=== PATIENT | female | born 1935 | race Caucasian/White ===

== ENCOUNTER 2018-04-08 09:06 | Inpatient (IN) | payer BC, OTHER ==
[2018-03-04 16:37] VITALS: BMI 36.0
--- NOTE | 2018-03-11 11:10 | HP ---
DATE OF ADMISSION: 03/17/2018 DATE OF SURGERY: 03/17/2018 BRIEF HISTORY: This is an 82-year-old female who was in her usual state of health up until a week or so ago when she developed sharp pain in the upper abdomen. She presented to her local hospital at that time and had complaints of sharp, upper abdominal pain with a large mass. The skin superficial to the mass was red, and the mass was extremely tender. She had nausea at that time associated with some mild vomiting. A CAT scan of the abdomen and pelvis was performed after the mass was pushed back in. The CT demonstrated a large, chronically incarcerated ventral hernia as well as a smaller umbilical hernia (more of an incidental finding). The patient has been fine since that hernia was reduced and now wishes to undergo definitive surgical management. The patient has had normal bowel movements. She has been watching her diet. She has had no fever, chills, or sweats. She has had no further bouts of abdominal pain. PAST MEDICAL HISTORY: She denies coronary disease, hypertension, or diabetes. PAST SURGICAL HISTORY: The patient has had cataracts and meniscus surgery. ALLERGIES: None. MEDICATIONS: Vitamins and a baby aspirin. SOCIAL HISTORY: The patient does not smoke. She drinks socially. PHYSICAL EXAMINATION: HEENT: Unremarkable. Abdomen: Obese, soft, nontender, nondistended. [place] between the xiphoid and umbilicus there is a large mass noted in the abdomen. The mass is approximately the size of a softball. There are no obvious defects appreciated due to its chronically incarcerated nature. The mass is mildly tender to deep palpation. She also has an umbilical hernia identified. The skin overlying the hernia is thin. IMPRESSION AND PLAN: Complex/chronically incarcerated ventral hernia. This is an 82-year-old female with 2 discrete hernias, one very large in the upper abdomen (epigastrium) and one at the level of the umbilicus. Due to the proximity of these two and the amount of free tissue between these two, I suspect she will have to have both repaired and addressed at the same time. The symptomatic hernia cannot be repaired well without addressing the other smaller hernia. Due to the fact that the epigastric hernia is large and that the other one heartbeat encompassed in the repair as well, she may require component separation for a nice tension-free rectorectus repair. This can only be determined at the time of surgery. I have discussed the various approaches with this patient such as laparoscopic, robotic, and open and various placements of the mesh and different meshes that we would potentially use at the time of surgery. The patient will be scheduled for an open complex ventral hernia repair with mesh most likely bilateral component separation as well. The indications, alternatives, and complications of the procedure discussed and questions answered. We will plan to obtain written consent the day of surgery. Ruby RAMIREZ [id number] cc: Sheyla Hsu [address] [place] [address]
[~2018-04-08 09:06] MED LIST: BUPIVACAINE HCL/PF (5 MG/ML) 30 ML VIAL IJ ONE; DEXAMETHASONE SOD PHOSPHATE 4 MG/1 ML VIAL IM ONE
[2018-04-08] MEDS ORDERED: DEXAMETHASONE SOD PHOSPHATE/PF 10 MG/ML SDV ONE (09:33)
[2018-04-08] MEDS ORDERED: ROPIVACAINE HCL 0.5% 30ML VIAL ONE (09:33)
[2018-04-08] MEDS ORDERED: MIDAZOLAM HCL 2 MG/2 ML SINGLE DOSE VIAL ONE ×2 (09:35)
[2018-04-08] MEDS ORDERED: ceFAZolin SODIUM 1 GM VIAL ONE (09:38)
[2018-04-08] MEDS ORDERED: oxyCODONE HCL 5 MG TABLET PO PRN (10:29)
[2018-04-08] MEDS ORDERED: D5-1/2NS+20 MEQ KCL - 20 MEQ/1,000 ML INFUS.BAG IV SCH (10:30)
--- NOTE | 2018-04-08 10:49 | HP ---
DATE OF ADMISSION: 04/08/2018 PREOPERATIVE DIAGNOSIS: Chronically incarcerated complex ventral hernia x2. BRIEF HISTORY: This is an 82-year-old female who I initiated evaluated in February 2018. Due to [facility] Guidelines, she is outside 30 days; therefore, the history and physical is redictated. Please refer to my initial history and physical for complete details. The patient has a complex ventral hernia and now is here for operative repair. PAST MEDICAL HISTORY: No coronary disease, hypertension, or diabetes. PAST SURGICAL HISTORY: Cataract and meniscus surgery. ALLERGIES: None. MEDICATIONS: Vitamins. SOCIAL HISTORY: The patient does not smoke. She drinks socially. PHYSICAL EXAMINATION: The abdomen is obese, soft, nontender, nondistended. In the epigastrium, the patient has a large, chronically incarcerated mass. The patient also has a mass at the level of the umbilicus. The superior mass is approximately the size of a softball. The inferior mass is approximately the size of a golf ball. IMPRESSION AND PLAN: Complex, chronically incarcerated ventral hernia x2. The patient will undergo repair. Due to the generosity and distance between the 2 findings, the patient will most likely require component separation as well. The indications, alternatives, and complications were discussed and questions answered. We will plan to obtain written consent the day of surgery as well. Ruby RAMIREZ [id number] cc: Dr. Sheyla Hsu
[2018-04-08] MEDS ORDERED: ceFAZolin SODIUM 1 GM VIAL IVPB ONE (11:05)
[2018-04-08] MEDS ORDERED: BUPIVACAINE HCL/PF (5 MG/ML) 30 ML VIAL IJ ONE (12:00)
[2018-04-08] MEDS ORDERED: DEXAMETHASONE SOD PHOSPHATE 4 MG/1 ML VIAL IM ONE (12:00)
[2018-04-08] MEDS ORDERED: PROMETHAZINE HCL 25 MG/1 ML VIAL IVPUSH PRN (13:03)
[2018-04-08] MEDS ORDERED: ONDANSETRON 4 MG/2 ML VIAL IVPUSH PRN (13:03)
[2018-04-08] MEDS ORDERED: LACTATED RINGERS SOLUTION 1,000 ML IV SCH (13:15)
--- NOTE | 2018-04-08 14:04 | OP ---
DATE OF OPERATION: 04/08/2018 PREOPERATIVE DIAGNOSIS: Complex, chronically incarcerated ventral hernia x2. POSTOPERATIVE DIAGNOSIS: Complex, chronically incarcerated ventral hernia x2. PROCEDURES: Open bilateral component separation, repair of complex incarcerated ventral hernia with mesh x2, partial omentectomy. SURGEON: Davis Monet MD CLAM GROWER: Cisco Hinton DO ANESTHESIA: Robert Cotto MD (general). ESTIMATED BLOOD LOSS: Minimal. SPECIMEN: Portion of omentum. INDICATION FOR PROCEDURE: This is an 82-year-old female with a large, chronically incarcerated ventral hernia. She also has a smaller one in the midline. The larger one is incarcerated with colon and she has had bouts of sharp pain associated with acute incarceration of her colon. Therefore, she wished to have this repaired now. DESCRIPTION OF PROCEDURE: Patient identified and appropriately positioned on the operating room table. After placement of general anesthesia, the abdomen prepped and draped in the usual sterile fashion with ChloraPrep. A midline incision was made, deepened through subcutaneous tissue. The two hernias identified in the subcutaneous tissue and divided from the subcutaneous tissue down to the level of the fascia. The larger superior hernia sac was incised and contained a portion of omentum that was making up part of the posterior wall of the sac as well as a portion of colon was stuck in the hernia itself. The sac and a portion of the omentum were sharply excised and handed off as specimen as hernia sac with partial omentectomy. The smaller defect inferiorly was also circumscribed and the distance between the two was approximately three fingerbreadths, but fairly close, and therefore the bridge between the two hernias was sharply divided, and in doing so, the abdomen was completely entered. The posterior rectus sheath on the patient' s right side was scored and the posterior rectus space subsequently developed bluntly out to the perforating vessels. At this point, the transversus was sharply divided from the obliques and rectus junction, and a myofascial separation ensured, the transversus to allow this muscle to be brought medially. This myofascial separation continued for approximately 5 inches above and below the actual defect. Superiorly, the separation was taken through the obliques to allow placement of the mesh on the anterior costal margin rib cage. Once this myofascial separation was completed on the right, a similar approach was used on the left. On the left side, the posterior rectus sheath was opened and out bluntly, and again the transversus fascia was sharply divided from the oblique junction as well as the rectus junction. This was taken 5 to 6 inches above and below the actual defect and superiorly was taken through the obliques to allow placement of the mesh on the anterior rib cage. At this point, the abdomen was irrigated, the irrigant retrieved, and the operative field was hemostatic. The transversus layer was then reapproximated with a running 2-0 V-Loc suture. A large, 30 x 30 piece of Versatex mesh and a 20 x 20 piece of AMY Bio was used for the operative repair. The AMY was a core. The two pieces of mesh were sewn together with interrupted 3-0 Vicryl suture. The mesh was placed in such a fashion behind the rectus muscle so that the AMY was touching the transversus and the Versatex was touching the posterior wall of the rectus. The mesh was then anchored with interrupted AbsorbaTack sutures. The mesh irrigated. The operative field noted to be hemostatic. Midline closed with a running PDS suture. The midline fascia was " ." It was frayed and retracted out laterally and therefore a primary repair of this layer would most likely recur. The subcutaneous space was irrigated. A 10-flat, LUISA placed, brought out through a separate stab incision in the right lower abdomen. The LUISA sewn with 2-0 silk. The skin closed with suze followed by Dermabond. At the conclusion of this case, sponge counts were correct. ATTESTATION: Brief operative note handwritten on the preprinted form. [facility] queried, prior to giving narcotics. It will be done electronically. Ruby RAMIREZ [id number] cc: Dr. Shadi LIU
[2018-04-08] MEDS ORDERED: morphine SULFATE 4 MG/ML VIAL IVPB PRN (15:33)
[2018-04-08] MEDS: ACETAMINOPHEN 325 MG TABLET (FP) PO PRN ×2 (16:31→22:58)
[2018-04-09] MEDS: ACETAMINOPHEN 325 MG TABLET (FP) PO PRN ×4 (06:00→21:08)
[2018-04-09] MEDS ORDERED: PANTOPRAZOLE SODIUM 40 MG VIAL IVPUSH SCH (10:00)
[2018-04-09] MEDS: ENOXAPARIN NA (PORCINE) 40 MG/0.4 ML DISP.SYRIN SQ SCH (10:08)
[2018-04-09] MEDS: ASPIRIN 81 MG CHEWABLE TABLETS PO SCH (10:08)
--- NOTE | 2018-04-09 13:28 | PATH ---
Surgical Pathology Report Patient Name: LAVERN VENTURA [facility]. Rec. #: [id number] /Age/Gender: 1935 (Age: 82) / F Account: [id number] Location: [facility] MED/SURG Taken: 04/08/2018 Received: 04/08/2018 Reported: 04/09/2018 Physicians: Davis Monet Specimen(s) Received A: HERNIA SAC B: PORTION OF OMENTUM Clinical History Incarcerated complex ventral hernia x2 Final Diagnosis A. HERNIA SAC, EXCISION: FIBROADIPOSE TISSUE WITH FAT NECROSIS, CONSISTENT WITH HERNIA SAC. B. PORTION OF OMENTUM: MATURE ADIPOSE TISSUE, CONSISTENT WITH OMENTUM. Electronically Signed Khari Negro M.D. Gross Description A. Received in formalin labeled "hernia sac," is an 8.0 x 6.5 x 2.7 cm aggregate of multiple perez-red portions of fibromembranous tissue with attached fat, consistent with a hernia sac. Sectioning reveals focally hemorrhagic fat and fat necrosis. Statement Clerks Supervisor sections are submitted in 2 cassettes. B. Received in formalin labeled "portion of omentum," is a 4.7 x 4.5 x 1.9 cm. portion of yellow, lobulated adipose tissue with attached perez-pink fibromembranous tissue. Statement Clerks Supervisor sections are submitted in one cassette. saudi/04/08/2018
[2018-04-09] MEDS ORDERED: oxyCODONE HCL 5 MG TABLET PO PRN (16:31)
--- NOTE | 2018-04-09 16:36 | PN ---
Progress Note (short form) - Note Progress Note: surgery pt seen and examined. feels well. tolerating liquids. ambulating. voiding. had drainage around rama afebrile abd- soft, incision clean, rama serous (stitch placed to tighten hole) Plan- Pod#1- stop ivf. pt wishes to stay to monitor drainage around rama. stitch placed to secure. cont liquids. cont protonix/lovenox prophylaxis. likely d/c tomorrow with drain
[2018-04-10 01:37] VITALS: PULSE 73
[2018-04-10] MEDS: ACETAMINOPHEN 325 MG TABLET (FP) PO PRN ×2 (07:23→11:37)
[2018-04-10 09:50] VITALS: BP 151/72; TEMP 98.4
[2018-04-10] MEDS ORDERED: PANTOPRAZOLE 40 MG TABLET (FP) PO SCH (10:00)
[2018-04-10] MEDS: ASPIRIN 81 MG CHEWABLE TABLETS PO SCH (10:13)
[2018-04-10] MEDS: ENOXAPARIN NA (PORCINE) 40 MG/0.4 ML DISP.SYRIN SQ SCH (10:13)
--- NOTE | 2018-04-10 11:13 | DS ---
DATE OF ADMISSION: 04/08/2018 DATE OF DISCHARGE: 04/10/2018 ADMITTING DIAGNOSIS: Complex ventral hernia. DISCHARGE DIAGNOSIS: Complex ventral hernia. BRIEF HISTORY: This is an 82-year-old female who presented to [facility] for surgical management of a complex ventral hernia. She had this done on April 08. Please reference Dr. Davis Monet's operative note for further details. She did well postoperatively. She is being discharged home today April 10. She is tolerating diet. She is ambulating and she is voiding. She will go home with a Isacc-Duval drain, which she will record the amount and empty daily. She will follow with Dr. Monet this coming week to be evaluated for drain removal. She has a new prescription for Percocet, which she will take as needed for pain. She is okay to walk, okay to climb stairs. She will not lift anything more than 20 pounds. She will resume her usual home medications. At the time of her discharge, she is ambulating, voiding, with pain easily controlled with oral medications. DO NANCY LUJAN/[id number]
== END 2018-04-10 13:48 | disposition home or self-care (01) | DRG 355 ==
LOC: JASUSAT 09:06 → JSAMEDAYSX 10:29 → J8W 15:20
PROVIDERS: ADMIT Obstetrics & Gynecology; ATTEND Surgery
PROC: 0DBU0ZZ Excision of Omentum, Open Approach (ICD-10-PCS; 2018-04-08)
PROC: 0WUF0JZ Supplement Abdominal Wall with Synthetic Substitute, Open Approach (ICD-10-PCS; principal; 2018-04-08 10:30)
DX: K43.6 Other and unspecified ventral hernia with obstruction, without gangrene (principal)
CPT/HCPCS: 88302-TC; 88305-TC; 94760

== ENCOUNTER 2020-06-07 04:10 | Inpatient (IN) | payer BC, OTHER ==
--- NOTE | 2020-06-07 05:14 | PDOC ---
History of Present Illness - General Chief Complaint: Pain, Acute Stated Complaint: ABDOMINAL / BACK PAIN Time Seen by Provider: 06/07/20 04:12 - History of Present Illness Initial Comments: 06/07/20 05:06 84 F with hx of hernia surgery presented to the ED with 1 day of left sided flank pain, and LLQ pain. Her pain started out yesterday around 3 am. Started out from the left plank side, sharp in nature, colicky, 5/10 in nature, then proceed to LLQ., took 1 aspirin, didn't help. She has no hx of kidney stones, no HTN, DM, hx of vascular disease. Her pain, associated with Nausea, no vomitting, no dizziness. Last week, she had UTI symptoms ( dysruria, incraese frequency); however, they went away quickly. She thinks this is more intestine pain, than kidney pain. PMH: none PSH: hernia repair 2x Allergy: none Med: none SS: alcohol occasionally. ROS GENERAL/CONSTITUTIONAL: No fever or chills. No weakness. HEAD, EYES, EARS, NOSE AND THROAT: No change in vision. No ear pain or discharge. No sore throat. CARDIOVASCULAR: No chest pain or shortness of breath RESPIRATORY: No cough, wheezing, or hemoptysis. GASTROINTESTINAL: + nausea, no vomiting, diarrhea or constipation. +abdomen pain. GENITOURINARY: No dysuria, frequency, or change in urination. MUSCULOSKELETAL: No joint or muscle swelling or pain. No neck. +left planked back pain. SKIN: No rash NEUROLOGIC: No headache, vertigo, loss of consciousness, or change in strength/sensation. ENDOCRINE: No increased thirst. No abnormal weight change HEMATOLOGIC/LYMPHATIC: No anemia, easy bleeding, or history of blood clots. ALLERGIC/IMMUNOLOGIC: No hives or skin allergy. PE GENERAL: Awake, alert, and fully oriented, in no acute distress; however, look uncomfortable. HEAD: No signs of trauma, normocephalic, atraumatic EYES: PERRLA, EOMI, sclera anicteric, conjunctiva clear ENT: Auricles normal inspection, hearing grossly normal, nares patent, oropharynx clear without exudates. Moist mucosa NECK: Normal ROM, supple, no lymphadenopathy, JVD, or masses LUNGS: No distress, speaks full sentences, clear to auscultation bilaterally HEART: Regular rate and rhythm, normal S1 and S2, no murmurs, rubs or gallops, peripheral pulses normal and equal bilaterally. ABDOMEN: Soft, normoactive bowel sounds. No guarding, no rebound. No masses. No pulsatile mass,+vertical hernia scar. +LLQ tenderness, no CVA tenderness bilat EXTREMITIES : Normal inspection, Normal range of motion, no edema. No clubbing or cyanosis. NEUROLOGICAL: Cranial nerves II through XII grossly intact. Normal speech, normal gait, no focal sensorimotor deficits SKIN: Warm, Dry, normal turgor, no rashes or lesions noted 06/07/20 05:18 06/07/20 05:44 Past History - Medical History Allergies/Adverse Reactions: Allergies Allergy/AdvReac Type Severity Reaction Status Date / Time No Known Allergies Allergy Verified 06/07/20 04:23 Home Medications: Ambulatory Orders Aspirin 81 mg PO DAILY 03/04/18 Cholecalciferol (Vitamin D3) [Vitamin D3] 1,000 unit PO DAILY 03/04/18 Cyanocobalamin (Vitamin B-12) [Vitamin B-12] 1,000 mcg PO DAILY 03/04/18 Oxycodone HCl/Acetaminophen [Percocet 5-325 mg Tablet] 1 tab PO Q4H PRN #15 tablet MDD 6 04/08/18 Anemia: No Asthma: No Cancer: No Cardiac Disorders: No CVA: No COPD: No CHF: No Dementia: No Diabetes: No GI Disorders: No Disorders: No HTN: No Hypercholesterolemia: No Liver Disease: No Seizures: No Thyroid Disease: No - Surgical History Abdominal Surgery: No Appendectomy: No Cardiac Surgery: No Cholecystectomy: No Lung Surgery: No Neurologic Surgery: No Orthopedic Surgery: Yes (torn meniscus right knee) - Immunization History Td Vaccination: Yes Immunization Up to Date: Yes - Psycho-Social/Smoking History Smoking Status: Yes (STOPPED > 30 YRS AGO) Smoking History: Never smoked Have you smoked in the past 12 months: No Number of Cigarettes Smoked Daily: 0 Information on smoking cessation initiated: No - Substance Abuse Hx (Audit-C & DAST Scrn) How often the patient has a drink containing alcohol: Never Score: In Men: 4 or > Positive; In Women: 3 or > Positive: 0 Screen Result (Pos requires Nsg. Audit-10AR): Negative In the last yr the pt used illegal drug/Rx for NonMed reason: No Score: Yes response is considered Positive: 0 Screen Result (Positive result requires Nsg. DAST-10): Negative *Physical Exam - Vital Signs Last Vital Signs Temp Pulse Resp BP Pulse Ox 98.3 F 89 20 192/90 H 97 06/07/20 04:23 06/07/20 04:23 06/07/20 04:23 06/07/20 04:23 06/07/20 04:23 ED Treatment Course - LABORATORY CBC & Chemistry Diagram: 06/07/20 05:12 06/07/20 05:12 Medical Decision Making - Medical Decision Making 06/07/20 05:16 84 F with hx of hernia surgery presented to the ED with 1 day of left sided flank pain, and LLQ pain. ddx: kidney stones, pyelo, diverticulitist, ACS, AAA Plan: EKG, CBC, CMP, lipase, trop, UA/UC. Med: pain control. Imaging: CT scan noncontrast 06/07/20 06:36 EKG show vent rate 77, reg rate, rhthym, normal sinus. Tall T waves, No ST changes suggesting Ischemic. Patient was asked to have option for pain medication. Patient refused. 06/07/20 06:40 06/07/20 06:46 Pain was reassessed. Patient now wants pain med. Will give tylenol. and regland for nausea. 06/07/20 06:51 Sign out is given to day team. Discharge - Discharge Information Problems reviewed: Yes Clinical Impression/Diagnosis: Flank pain Condition: Stable - Follow up/Referral - Patient Discharge Instructions - Post Discharge Activity
[2020-06-07 05:44] LABS: BASO % 0.4 % (0-2.0); EOS % 0.4 % (0-4.5); HEMATOCRIT 38.7 % (32.4-45.2); LYMPH % 8.7 % (8-40); MCH 29.7 pg (25.7-33.7); MCHC 33.5 g/dl (32.0-36.0); MEAN CELL VOLUME 88.6 fl (80-96); MEAN PLT VOLUME 8.8 fl (7.5-11.1); MONO % 6.2 % (3.8-10.2); NEUT % 84.3 % (42.8-82.8); PLATELET COUNT 149 K/MM3 (134-434); RBC 4.37 M/mm3 (3.60-5.2); WHITE BLOOD COUNT 8.1 K/mm3 (4.0-10.0)
--- NOTE | 2020-06-07 05:48 | PDOC ---
Attending Attestation - Resident Resident Name: Julio Davies - ED Attending Attestation I have performed the following: I have examined & evaluated the patient, The case was reviewed & discussed with the resident, I agree w/resident's findings & plan - HPI HPI: 06/07/20 05:47 84 F with hx of hernia surgery/repair presented to the ED with 1 day of left sided flank pain, and LLQ pain. Her pain started out yesterday around 3 am. Started out from the left plank side, sharp in nature, colicky, 5/10 in nature, then proceed to LLQ., took 1 aspirin, didn't help. She has no hx of kidney stones, no HTN, DM, hx of vascular disease. Her pain, associated with Nausea, no vomitting, no dizziness. Last week, she had UTI symptoms ( dysruria, incraese frequency); however, they went away quickly. She thinks this is more intestine pain, than kidney pain. 06/07/20 07:07 - Physicial Exam PE: 06/07/20 06:08 Agree with the resident's HPI and PE as documented in the electronic medical record. Pleasant elderly female EOMI, PERRL, nl conjunctiva, anicteric; neck supple. lungs clear, RRR, abdomen soft obese abdomen, left lower quadrant tenderness, no rebound, guarding. vertical midline surgical scar, healed. Back nontender, no CVAT. MCKEON x4, no focal neuro deficits. No peripheral edema. normal color for ethnicity, WWP. 06/07/20 06:59 06/07/20 07:06 - Medical Decision Making 06/07/20 05:47 Vital Signs Temp Pulse Resp BP Pulse Ox 98.3 F 89 20 192/90 H 97 06/07/20 04:23 06/07/20 04:23 06/07/20 04:23 06/07/20 04:23 06/07/20 04:23 DDx abdominal pain: Renal colic, biliary colic, metabolic/electrolyte derangements. GERD, PUD, esophageal spasm, pancreatitis, hepatitis, constipation, colitis, gastroenteritis, cholecystitis, UTI, pyelonephritis, ileus, SBO, medication side effect, hernia, appendicitis, diverticulitis, mesenteric ischemia. msk strain, mesenteric adenitis, psoas abscess. vitals with hypertension, likely from pain afebrile no systemic sx. normal HR labs and lytes lactic is thus far normal UA CT a/p to eval for stone/ vs infection vs diverticulitis given her LLQ /left flank pain analgesia hydration reassess s/o to Dr Escalante pending imaging, reeval and ultimate dispo 06/07/20 06:59 Heart Score/ECG Review #1 ECG reviewed & interpreted by me at: 06:05 General ECG Interpretation: Sinus Rhythm, Normal Rate, Normal Intervals 06/07/20 06:08 EKG normal sinus rhythm 77 bpm, no interval abnormalities, narrow QRS, ST and T wave segments and morphology normal. Discharge - Discharge Information Problems reviewed: Yes Clinical Impression/Diagnosis: Flank pain, Left lower quadrant abdominal pain Condition: Stable - Follow up/Referral - Patient Discharge Instructions - Post Discharge Activity
[2020-06-07] MEDS ORDERED: METOCLOPRAMIDE HCL INJECTION 10 MG/2 ML VIAL IVPUSH ONE (06:47)
[2020-06-07] MEDS ORDERED: ACETAMINOPHEN 1000 MG/100 ML VIAL (NON FORMULARY) IVPB ONE ×2 (06:47→11:02)
[2020-06-07] MEDS ORDERED: METOCLOPRAMIDE HCL INJECTION 10 MG/2 ML VIAL ONE (06:55)
[2020-06-07] MEDS ORDERED: ACETAMINOPHEN INJECTION 100 ML IVPB ONE ×2 (06:55→11:36)
[2020-06-07] MEDS ORDERED: SODIUM CHLORIDE 0.9% 500 ML INFUS.BAG IV ONE (07:05)
[2020-06-07 07:21] LABS: ALBUMIN 3.5 g/dl (3.4-5.0); ALK PHOS 99 U/L (45-117); ANION GAP 10 MMOL/L (8-16); BILIRUBIN,TOTAL 0.8 mg/dL (0.2-1); CALCIUM 8.5 mg/dL (8.5-10.1); CHLORIDE 101 mmol/L (98-107); CO2 25 mmol/L (21-32); CREATININE 1.6 mg/dL (0.55-1.3); GLUCOSE,RANDOM 143 mg/dL (74-106); LIPASE 179 U/L (73-393); POTASSIUM 4.6 mmol/L (3.5-5.1); SGOT/AST 29 U/L (15-37); SGPT/ALT 37 U/L (13-61); SODIUM 137 mmol/L (136-145)
[2020-06-07 07:23] LABS: EPI CELLS 23 /uL (0-25.1); HYALINE CASTS 4 /uL (0-3.1); URINE APPEARANCE CLOUDY; URINE BACTERIA 24 /uL (0-1359); URINE BILIRUBIN NEGATIVE (NEGATIVE); URINE COLOR YELLOW; URINE GLUCOSE (UA) NEGATIVE (NEGATIVE); URINE KETONE NEGATIVE (NEGATIVE); URINE LEUK ESTERASE 2+ (NEGATIVE); URINE NITRITE NEGATIVE (NEGATIVE); URINE PROTEIN NEGATIVE (NEGATIVE); URINE RBC 30 /uL (0-23.9); URINE UROBILINOGEN 0.2 mg/dL (0.2-1.0); URINE WBC 703 /uL (0-25.8)
[2020-06-07] MEDS ORDERED: CEPHALEXIN MONOHYDRATE 500 MG CAPSULE (UD) PO ONE (07:38)
--- NOTE | 2020-06-07 07:47 | PDOC ---
*Physical Exam - Vital Signs Last Vital Signs Temp Pulse Resp BP Pulse Ox 99.0 F 73 20 169/88 97 06/07/20 07:10 06/07/20 07:10 06/07/20 07:10 06/07/20 07:10 06/07/20 07:10 ED Treatment Course - LABORATORY CBC & Chemistry Diagram: 06/07/20 05:12 06/07/20 05:12 - ADDITIONAL ORDERS Additional order review: Laboratory Results 06/07/20 06/07/20 06/07/20 06:30 05:12 05:12 Sodium 137 Potassium 4.6 Chloride 101 Carbon Dioxide 25 Anion Gap 10 BUN 19.0 H Creatinine 1.6 H Est GFR (CKD-EPI)AfAm 34.42 Est GFR (CKD-EPI)NonAf 29.70 Random Glucose 143 H Lactic Acid 1.6 Calcium 8.5 Total Bilirubin 0.8 AST 29 ALT 37 Alkaline Phosphatase 99 Creatine Kinase 177 Troponin I < 0.02 Total Protein 7.0 Albumin 3.5 Lipase 179 Urine Color Yellow Urine Appearance Cloudy Urine pH 5.0 Ur Specific [place] 1.022 Urine Protein Negative Urine Glucose (UA) Negative Urine Ketones Negative Urine Blood 1+ H Urine Nitrite Negative Urine Bilirubin Negative Urine Urobilinogen 0.2 Ur Leukocyte Esterase 2+ H Urine WBC (Auto) 703 Urine RBC (Auto) 30 Urine Casts (Auto) 4 U Epithel Cells (Auto) 23 Urine Bacteria (Auto) 24 06/07/20 05:12 RBC 4.37 MCV 88.6 MCHC 33.5 RDW 14.0 MPV 8.8 Neutrophils % 84.3 H Lymphocytes % 8.7 Monocytes % 6.2 Eosinophils % 0.4 Basophils % 0.4 - Medications Given in the ED: ED Medications Discontinued Medications Generic Name Dose Route Start Last Admin Trade Name Freq PRN Reason Stop Dose Admin Acetaminophen 1,000 mg 06/07/20 06:47 06/07/20 07:06 Ofirmev Injection - IVPB 06/07/20 06:48 1,000 mg ONCE ONE Administration Metoclopramide HCl 10 mg 06/07/20 06:47 06/07/20 07:06 Reglan Injection - IVPUSH 06/07/20 06:48 10 mg ONCE ONE Administration Sodium Chloride 1,000 ml 06/07/20 07:05 06/07/20 07:15 Normal Saline - IV 06/07/20 07:06 1,000 ml ONCE ONE Administration Medical Decision Making - Medical Decision Making 06/07/20 07:45 CT A/P - partially obstructive 5mm proximal L ureteral stone w moderate hydronephrosis --- 84 F with hx of hernia surgery presented with 1 day of left sided flank pain radiating to LLQ Has infected L ureteral stone and SURYA Cr 1.6 Given tylenol, reglan, keflex, rocephin, 1L NS Consulted Dr Wooten urology Admit m/s hospitalist infected L ureteral stone, SURYA PCP [facility] Discharge - Discharge Information Problems reviewed: Yes Clinical Impression/Diagnosis: SURYA (acute kidney injury), Nephrolithiasis UTI (urinary tract infection) Qualifiers: Urinary tract infection type: acute cystitis Hematuria presence: with hematuria Qualified Code(s): N30.01 - Acute cystitis with hematuria Condition: Improved - Follow up/Referral - Patient Discharge Instructions - Post Discharge Activity
[2020-06-07] MEDS ORDERED: CEPHALEXIN MONOHYDRATE 500 MG CAPSULE (UD) ONE (07:48)
[2020-06-07] MEDS ORDERED: CEFTRIAXONE 1 GM in DEXTROSE 5%-WATER - 100 ML IVPB ONE (09:35)
[2020-06-07] MEDS ORDERED: CEFTRIAXONE 1 GM/50 ML BAG ONE (09:56)
[2020-06-07] MEDS ORDERED: SODIUM CHLORIDE 1,000 ML IV SCH ×2 (11:15→11:53)
--- NOTE | 2020-06-07 11:27 | EKG ---
Test Reason : Blood Pressure : / mmHG Vent. Rate : 077 BPM Atrial Rate : 077 BPM P-R Int : 164 ms QRS Dur : 086 ms QT Int : 390 ms P-R-T Axes : 064 052 059 degrees QTc Int : 441 ms NORMAL SINUS RHYTHM POSSIBLE LEFT ATRIAL ENLARGEMENT POSSIBLE ANTERIOR INFARCT , AGE UNDETERMINED ABNORMAL ECG NO PREVIOUS ECGS AVAILABLE Confirmed by JEFFREY YANES MD ([id number]) on 06/07/2020 11:26:39 AM Referred By: Confirmed By:JEFFREY YANES MD
[2020-06-07] MEDS ORDERED: HYDROmorphone HCL CARPU-JECT 2 MG/1 ML DISP.SYRIN IVPUSH PRN (11:48)
[2020-06-07] MEDS ORDERED: LACTATED RINGERS SOLUTION 1,000 ML IV SCH ×2 (12:00→16:25)
[2020-06-07] MEDS ORDERED: PROMETHAZINE HCL 25 MG/1 ML VIAL IVPUSH PRN ×2 (12:00→16:25)
[2020-06-07] MEDS ORDERED: TAMSULOSIN HCL 0.4 MG CAP PO ONE (12:00)
[2020-06-07] MEDS ORDERED: ONDANSETRON 4 MG/2 ML VIAL IVPUSH PRN ×2 (12:00→16:25)
--- NOTE | 2020-06-07 12:07 | CON.GU ---
Consult - History of Present Illness History of Present Illness: 84 yo female with no prior history presents with left flank pain, CY with 5mm obstructing left prox ureteral stone, UA with pyuria - Alcohol/Substance Use Hx Alcohol Use: Yes (social) - Smoking History Smoking history: Never smoked Have you smoked in the past 12 months: No Aproximately how many cigarettes per day: 0 Home Medications - Allergies Allergies/Adverse Reactions: Allergies Allergy/AdvReac Type Severity Reaction Status Date / Time No Known Allergies Allergy Verified 06/07/20 04:23 - Home Medications Home Medications: Ambulatory Orders Aspirin 81 mg PO DAILY 03/04/18 Cholecalciferol (Vitamin D3) [Vitamin D3] 1,000 unit PO DAILY 03/04/18 Cyanocobalamin (Vitamin B-12) [Vitamin B-12] 1,000 mcg PO DAILY 03/04/18 Oxycodone HCl/Acetaminophen [Percocet 5-325 mg Tablet] 1 tab PO Q4H PRN #15 tablet MDD 6 04/08/18 Physical Exam- Vital Signs: Vital Signs Temperature 97.8 F 06/07/20 10:23 Pulse Rate 76 06/07/20 10:23 Respiratory Rate 18 06/07/20 10:23 Blood Pressure 146/75 06/07/20 10:23 O2 Sat by Pulse Oximetry (%) 98 06/07/20 10:23 Gastrointestinal: Yes: Soft Kidneys: Yes: Flank Pain Left Labs: CBC, BMP 06/07/20 05:12 06/07/20 05:12 Imaging - Results Cat Scan: Image Reviewed Problem List - Problems (1) Left ureteral stone Assessment/Plan: will plan for cysto/stent in light of pain and pyuria Code(s): N20.1 - CALCULUS OF URETER
[2020-06-07] MEDS ORDERED: PROPOFOL 20 ML ONE (12:08)
[2020-06-07] MEDS ORDERED: MIDAZOLAM HCL 2 MG/2 ML SINGLE DOSE VIAL ONE (12:08)
[2020-06-07] MEDS ORDERED: LIDOCAINE HCL/PF 2% SDV 5ML VIAL ONE (12:08)
--- NOTE | 2020-06-07 12:20 | HP ---
CHIEF COMPLAINT: L Flank pain PCP: HISTORY OF PRESENT ILLNESS: This is an 84 year old female with no significant PMH. She presented to the ER with complaints of L flank pain that began around 3AM on 06/05. The pt was asleep when the pain began, noticed when she got up to urinate. It was located in the left flank, sudden in onset, intermittent in frequency, lasting approximately 15 minutes followed by 45-60 minutes without pain, rated 5/6-10 in intensity. the pain was described as throbbing in nature, radiating to the LLQ of the abdomen, alleviated only partially by ASA, with no identifiable aggravating factors. She endorses a recorded oral temperature of 99 at home the night before, as well as a few episodes of dysuria one week ago. In the ER, CTAP without contrast was performed, which showed a 5mm L ureteral calculus with moderate hydronephrosis, and UA showed 1+ blood and 2+ LE. Urology was consulted, she was given Keflex 500mg as well as Ceftriaxone 1g, 1L N/S, Tyelnol IVPB, and 10mg Reglan Recent Travel: denies PAST MEDICAL HISTORY: None PAST SURGICAL HISTORY: Hernia surgery 2 years ago Social History: Smoking:denies Alcohol: denies Drugs: denies Allergies No Known Allergies Allergy (Verified 06/07/20 04:23) HOME MEDICATIONS: Home Medications Medication Instructions Recorded Aspirin 81 mg PO DAILY 03/04/18 Cholecalciferol (Vitamin D3) 1,000 unit PO DAILY 03/04/18 [Vitamin D3] Cyanocobalamin (Vitamin B-12) 1,000 mcg PO DAILY 03/04/18 [Vitamin B-12] Oxycodone HCl/Acetaminophen 1 tab PO Q4H PRN #15 tablet MDD 6 04/08/18 [Percocet 5-325 mg Tablet] REVIEW OF SYSTEMS CONSTITUTIONAL: Absent: fever, chills, diaphoresis, generalized weakness, malaise, loss of appetite, weight change HEENT: Absent: rhinorrhea, nasal congestion, throat pain, throat swelling, difficulty swallowing, mouth swelling, ear pain, eye pain, visual changes CARDIOVASCULAR: Absent: chest pain, syncope, palpitations, irregular heart rate, lightheadedness, peripheral edema RESPIRATORY: Absent: cough, shortness of breath, dyspnea with exertion, orthopnea, wheezing, stridor, hemoptysis GASTROINTESTINAL: Absent: abdominal pain, abdominal distension, nausea, vomiting, diarrhea, constipation, melena, hematochezia GENITOURINARY: flank pain Absent: dysuria, frequency, urgency, hesitancy, hematuria, flank pain, genital pain MUSCULOSKELETAL: Absent: myalgia, arthralgia, joint swelling, back pain, neck pain SKIN: Absent: rash, itching, pallor HEMATOLOGIC/IMMUNOLOGIC: Absent: easy bleeding, easy bruising, lymphadenopathy, frequent infections ENDOCRINE: Absent: unexplained weight gain, unexplained weight loss, heat intolerance, cold intolerance NEUROLOGIC: Absent: headache, focal weakness or paresthesias, dizziness, unsteady gait, seizure, mental status changes, bladder or bowel incontinence PSYCHIATRIC: Absent: anxiety, depression, suicidal or homicidal ideation, hallucinations. PHYSICAL EXAMINATION Vital Signs - 24 hr 06/07/20 06/07/20 06/07/20 04:20 04:23 07:10 Temperature 98.7 F 98.3 F 99.0 F Pulse Rate 89 Pulse Rate [ 79 73 Radial] Respiratory 18 20 20 Rate Blood Pressure 192/90 H Blood Pressure 171/76 H 169/88 [Left Arm] Blood Pressure [Right Arm] O2 Sat by Pulse 96 97 97 Oximetry (%) 06/07/20 10:23 Temperature 97.8 F Pulse Rate Pulse Rate [ 76 Radial] Respiratory 18 Rate Blood Pressure Blood Pressure [Left Arm] Blood Pressure 146/75 [Right Arm] O2 Sat by Pulse 98 Oximetry (%) GENERAL: Awake, alert, and fully oriented, in no acute distress. HEAD: Normal with no signs of trauma. EYES: Pupils equal, round and reactive to light, extraocular movements intact, sclera anicteric, conjunctiva clear. No lid lag. EARS, NOSE, THROAT: Ears normal, nares patent, oropharynx clear without exudates. Moist mucous membranes. NECK: Normal range of motion, supple without lymphadenopathy, JVD, or masses. LUNGS: Breath sounds equal, clear to auscultation bilaterally. No wheezes, and no crackles. No accessory muscle use. HEART: Regular rate and rhythm, normal S1 and S2 without murmur, rub or gallop. ABDOMEN: Soft, nontender, not distended, L CVA tenderness MUSCULOSKELETAL: Normal range of motion at all joints. No bony deformities or tenderness. No CVA tenderness. UPPER EXTREMITIES: 2+ pulses, warm, well-perfused. No cyanosis. No clubbing. No peripheral edema. LOWER EXTREMITIES: 2+ pulses, warm, well-perfused. No calf tenderness. No peripheral edema. NEUROLOGICAL: Cranial nerves II-XII intact. Normal speech. Normal gait. PSYCHIATRIC: Cooperative. Good eye contact. Appropriate mood and affect. SKIN: Warm, dry, normal turgor, no rashes or lesions noted, normal capillary refill. Laboratory Results - last 24 hr 06/07/20 06/07/20 06/07/20 05:12 05:12 05:12 WBC 8.1 RBC 4.37 Hgb 13.0 Hct 38.7 MCV 88.6 MCH 29.7 MCHC 33.5 RDW 14.0 Plt Count 149 MPV 8.8 Absolute Neuts (auto) 6.8 Neutrophils % 84.3 H Lymphocytes % 8.7 Monocytes % 6.2 Eosinophils % 0.4 Basophils % 0.4 Nucleated RBC % 0 Sodium 137 Potassium 4.6 Chloride 101 Carbon Dioxide 25 Anion Gap 10 BUN 19.0 H Creatinine 1.6 H Est GFR (CKD-EPI)AfAm 34.42 Est GFR (CKD-EPI)NonAf 29.70 Random Glucose 143 H Lactic Acid 1.6 Calcium 8.5 Total Bilirubin 0.8 AST 29 ALT 37 Alkaline Phosphatase 99 Creatine Kinase 177 Creatine Kinase Index 1.7 CK-MB (CK-2) 3.1 Troponin I < 0.02 Total Protein 7.0 Albumin 3.5 Lipase 179 Urine Color Urine Appearance Urine pH Ur Specific [place] Urine Protein Urine Glucose (UA) Urine Ketones Urine Blood Urine Nitrite Urine Bilirubin Urine Urobilinogen Ur Leukocyte Esterase Urine WBC (Auto) Urine RBC (Auto) Urine Casts (Auto) U Epithel Cells (Auto) Urine Bacteria (Auto) 06/07/20 06:30 WBC RBC Hgb Hct MCV MCH MCHC RDW Plt Count MPV Absolute Neuts (auto) Neutrophils % Lymphocytes % Monocytes % Eosinophils % Basophils % Nucleated RBC % Sodium Potassium Chloride Carbon Dioxide Anion Gap BUN Creatinine Est GFR (CKD-EPI)AfAm Est GFR (CKD-EPI)NonAf Random Glucose Lactic Acid Calcium Total Bilirubin AST ALT Alkaline Phosphatase Creatine Kinase Creatine Kinase Index CK-MB (CK-2) Troponin I Total Protein Albumin Lipase Urine Color Yellow Urine Appearance Cloudy Urine pH 5.0 Ur Specific [place] 1.022 Urine Protein Negative Urine Glucose (UA) Negative Urine Ketones Negative Urine Blood 1+ H Urine Nitrite Negative Urine Bilirubin Negative Urine Urobilinogen 0.2 Ur Leukocyte Esterase 2+ H Urine WBC (Auto) 703 Urine RBC (Auto) 30 Urine Casts (Auto) 4 U Epithel Cells (Auto) 23 Urine Bacteria (Auto) 24 ASSESSMENT/PLAN: 84F with no PMH, presented to the ER with complaints of throbbing L flank pain that began around 3AM on 06/05, was found to have pyuria on UA and a 5mm L ureteral calculus with moderate hydronephrosis on CTAP. Admited for obstructing/infected ureteral calculus, planned for cysto/stent as per Urology. #Obstructing calculus - Unclear etiology, will strain urine and order Urine Ca to investigate potential causes - CTAP: 5mm L ureteral calculus with moderate hydronephrosis - Urology consult placed (Dr. Fisher): plan for cysto/stent placement - Started on Tamsulosin 0.4mg daily - N/S @ 100 - Tylenol IVPB for pain control, Dilaudid 0.5mg Q6H PRN for breakthrough pain, will avoid Morphine and NSAIDS due to SURYA - PT/INR ordered in AM for possible procedure #Asymptomatic UTI/Pyuria - UA: 1+ blood and 2+ LE with 700 WBC and 28 bacteria, 23 Epithelial cells - Continue Ceftriaxone 1g #SURYA - Cr 1.6, no baseline available - Likely obstructive 2/2 calculus - Will hydrate, void nephrotoxic agents, and monitor Cr #FEN - N/S @ 100 - NPO after midnight #Prophylaxis - SCDs, possible procedure tomorrow #Dispo - Will admit to M/S and manage pain, prepare for possible procedure tomorrow Visit type - Medication Review Med list reviewed for High Risk Meds patients 65 and older: Yes - Emergency Visit Emergency Visit: Yes ED Registration Date: 06/07/20 Care time: The patient presented to the Emergency Department on the above date and was hospitalized for further evaluation of their emergent condition. - New Patient This patient is new to me today: Yes Date on this admission: 06/07/20 - Critical Care Critical Care patient: No ATTENDING PHYSICIAN STATEMENT I saw and evaluated the patient. I reviewed the resident's note and discussed the case with the resident. I agree with the resident's findings and plan as documented. SUBJECTIVE: OBJECTIVE: ASSESSMENT AND PLAN:
--- NOTE | 2020-06-07 12:32 | PN ---
Teaching Attending Note Name of Resident: Carlos Pink ATTENDING PHYSICIAN STATEMENT I saw and evaluated the patient. I reviewed the resident's note and discussed the case with the resident. I agree with the resident's findings and plan as documented. HPI: 84-year-old female with no past medical history presents the ED with complaint of left flank pain that began early Thursday morning. Over the last 2 days the pain has steadily worsened increasing to a 5-6 out of 10 in intensity. Patient denies nausea, vomiting, fever, chills, shortness of breath, chest pain. In the ED, vital signs significant for blood pressure 192/90, patient afebrile and hemodynamically stable on room air. Labs significant for BUN/creatinine 19/1.6, with a positive UA. CT abdomen pelvis shows 5 mm proximal left ureteral calculus with moderate hydronephrosis. Patient admitted for obstructive left ureteral stone with postobstructive SURYA. OBJECTIVE: Last Vital Signs Temp Pulse Resp BP Pulse Ox 97.8 F 76 18 146/75 98 06/07/20 10:23 06/07/20 10:23 06/07/20 10:23 06/07/20 10:23 06/07/20 10:23 PE: Per resident note Labs/Imaging: reviewed ASSESSMENT AND PLAN: 84-year-old female with no past medical history presents the ED with left flank pain for several days, found to have obstructive left ureteral stone with postobstructive SURYA. #Obstructive ureteral stone Urology on board: Patient to be taken for cystoscopy/stents Fluids Tamsulosin Pain control PRN Zofran
[2020-06-07] MEDS ORDERED: DEXAMETHASONE SOD PHOSPHATE 4 MG/1 ML VIAL ONE (12:33)
--- NOTE | 2020-06-07 12:45 | OP ---
Operative Note - Note: Operative Date: 06/07/20 Pre-Operative Diagnosis: LPU stone Operation: cysto/stent Post-Operative Diagnosis: Same as Pre-op Surgeon: Cisco Wooten Anesthesiologist/STORAGE BRINE WORKER: Quinton Harrell Anesthesia: General Operative Report Dictated: Yes
[2020-06-07] MEDS ORDERED: HEPARIN NA (PORCINE) 5,000 UNITS/ML 1ML VIAL SQ SCH (14:00)
[2020-06-07] MEDS ORDERED: ACETAMINOPHEN 1000 MG/100 ML VIAL (NON FORMULARY) IVPB PRN ×2 (15:00→16:25)
--- NOTE | 2020-06-07 16:00 | OP ---
DATE OF OPERATION: 06/07/2020 PREOPERATIVE DIAGNOSIS: Obstructing left proximal ureteral stone. POSTOPERATIVE DIAGNOSIS: Obstructing left proximal ureteral stone. PROCEDURE: Cystoscopy, left ureteral stent placement, retrograde pyelogram. SURGEON: Duane Avila MD INDICATION: Patient is an 84-year-old female noted to have an obstructing stone and pyuria with left flank pain. She was taken to the OR emergently for cystoscopy and left ureteral stent placement. Risks, benefits, and alternatives discussed. Patient taken to the OR, placed supine on the table. Cardiac monitoring administered. General anesthesia established. She was prepped and draped in dorsal lithotomy position. She had received 1 g of ceftriaxone. The rigid cystoscope was inserted into the urethra without difficulty and into the bladder. There were no tumors or stones noted in the bladder. Attention was turned to the right ureteral orifice. It was intubated with the ureteral catheter, and contrast injected for retrograde pyelogram. There was hydronephrosis to the level of the proximal ureter where a stone was seen. Guidewire was advanced beyond the stone, and over the guidewire, a 7-Korean, 24-cm, double-pigtail stent was advanced in a monorail fashion. Fluoroscopy confirmed the stent to be in good position. Patient was awoken from anesthesia and transferred to the recovery room in stable condition. There were no complications. There was no blood loss. DUANE AVILA M.D. [id number]
[2020-06-07] MEDS ORDERED: HYDROmorphone HCl 2 MG/ML VIAL IVPUSH PRN (16:25)
[2020-06-07 19:46] VITALS: BMI 35.2
[2020-06-07] MEDS: SODIUM CHLORIDE 1,000 ML IV SCH (20:38)
[2020-06-08 07:35] LABS: HEMATOCRIT 38.4 % (32.4-45.2); HEMOGLOBIN 12.7 GM/dL (10.7-15.3); INR 0.97 (0.83-1.09); MCH 29.4 pg (25.7-33.7); MEAN CELL VOLUME 89.3 fl (80-96); MEAN PLT VOLUME 8.8 fl (7.5-11.1); PLATELET COUNT 154 K/MM3 (134-434); PROTHROMBIN TIME (PATIENT) 11.5 SEC (9.7-13.0); WHITE BLOOD COUNT 8.4 K/mm3 (4.0-10.0)
[2020-06-08 07:57] LABS: ALBUMIN 3.2 g/dl (3.4-5.0); BILIRUBIN,TOTAL 0.6 mg/dL (0.2-1); BLOOD UREA NITROGEN 12.9 mg/dL (7-18); CALCIUM 8.2 mg/dL (8.5-10.1); CREATININE 0.9 mg/dL (0.55-1.3); MAGNESIUM 2.4 mg/dL (1.8-2.4); PHOSPHOROUS 3.2 mg/dL (2.5-4.9); POTASSIUM 4.1 mmol/L (3.5-5.1); TOT PROT 6.7 g/dl (6.4-8.2)
[2020-06-08] MEDS ORDERED: TAMSULOSIN HCL 0.4 MG CAP PO SCH (08:30)
[2020-06-08] MEDS ORDERED: cefTRIAXone SODIUM 1 GM VIAL ONE (08:45)
[2020-06-08] MEDS ORDERED: DEXTROSE 5%-WATER - 50 ML IVPB ONE (08:45)
[2020-06-08] MEDS ORDERED: ENOXAPARIN NA (PORCINE) 40 MG/0.4 ML DISP.SYRIN SQ SCH (10:00)
[2020-06-08] MEDS ORDERED: CEFTRIAXONE 1 GM in DEXTROSE 5%-WATER - 50 ML IVPB SCH (10:00)
[2020-06-08] MEDS ORDERED: POLYETHYLENE GLYCOL 3350 119 GM BTL PO ONE (15:02)
[2020-06-08 15:32] VITALS: BP 144/64; PULSE 82; TEMP 98.7
[2020-06-08] MEDS: SODIUM CHLORIDE 1,000 ML IV SCH (16:27)
--- NOTE | 2020-06-08 16:27 | DS ---
Physical Exam: SUBJECTIVE: No overnight events. Patient seen and examined. Endorses feeling well. Denies pain. OBJECTIVE: Vital Signs Period Temp Pulse Resp BP Sys/[place] Pulse Ox Last 24 Hr 97.9 F-98.7 F 78-87 18-20 126-144/64-78 96-100 PHYSICAL EXAM GENERAL: The patient is awake, alert, and fully oriented, in no acute distress. HEENT: Normal with no signs of trauma. MMM LUNGS: Breath sounds equal, clear to auscultation bilaterally, no wheezes, no crackles, no accessory muscle use. HEART: Regular rate and rhythm, S1, S2 without murmur, rub or gallop. ABDOMEN: Soft, nontender, nondistended, normoactive bowel sounds, no guarding, no rebound, BACK: NO CVA tenderness EXTREMITIES: 2+ pulses, warm, well-perfused, no edema. NEUROLOGICAL: Normal speech, gait not observed. PSYCH: Normal mood, normal affect. LABS Laboratory Results - last 24 hr 06/07/20 06/08/20 06/08/20 10:30 06:15 06:15 WBC 8.4 RBC 4.30 Hgb 12.7 Hct 38.4 MCV 89.3 MCH 29.4 MCHC 33.0 RDW 14.0 Plt Count 154 MPV 8.8 PT with INR 11.50 INR 0.97 Sodium Potassium Chloride Carbon Dioxide Anion Gap BUN Creatinine Est GFR (CKD-EPI)AfAm Est GFR (CKD-EPI)NonAf Random Glucose Calcium Phosphorus Magnesium Total Bilirubin AST ALT Alkaline Phosphatase Total Protein Albumin COVID-19 (VIANNEY) Not detected 06/08/20 06:15 WBC RBC Hgb Hct MCV MCH MCHC RDW Plt Count MPV PT with INR INR Sodium 139 Potassium 4.1 Chloride 108 H Carbon Dioxide 28 Anion Gap 4 L BUN 12.9 Creatinine 0.9 Est GFR (CKD-EPI)AfAm 69.01 Est GFR (CKD-EPI)NonAf 59.55 Random Glucose 128 H Calcium 8.2 L Phosphorus 3.2 Magnesium 2.4 Total Bilirubin 0.6 AST 23 ALT 33 Alkaline Phosphatase 98 Total Protein 6.7 Albumin 3.2 L COVID-19 (VIANNEY) HOSPITAL COURSE: Date of Admission:06/07/20 84F w/ no significant PMH, presented to [facility] w/ complaint of sudden-onset throbbing Left-sided flank pain, first noticed in the middle of the night when she got up to urinate. CT A/P showed a 5mm L ureteral calculus with moderate hydronephrosis, and UA showed 1+ blood and 2+ LE. Had SURYA(Cr 1.6), which improved 0.9 after IVF and stent. Urology was consulted who performed a cystoscopy and stent(Sugar, 06/07/20). Was given Keflex, then ceftriaxone preoperatively. Elizabeth(covering Tiffanieazzoalisa) postoperatively, who recommended continuing abx w/ levquin 500BID for an additional 7days. Pt stable for discharge home. Date of Discharge: 06/08/20 Discharge Summary Problems reviewed: Yes Reason For Visit: ACUTE KIDNEY INJ,UTI,CALCULUS OF KIDNEY Current Active Problems SURYA (acute kidney injury) (Acute) Left ureteral stone (Acute) Nephrolithiasis (Acute) UTI (urinary tract infection) (Acute) Condition: Stable - Instructions Diet, Activity, Other Instructions: You came in to the hospital with Left flank pain. You were found to have decreased kidney function. Imaging of your abdomen showed a 5mm Left ureteral stone and kidney swelling. You were given antibiotics and underwent a cystoscopy with a stent insertion by a urologist. You were given antibiotics and pain medications. After your procedure, your symptoms improved. You are stable for discharge. MEDICATIONS Please start taking Levofloxacin (Levaquin) 500 mg once a day for 7 days. For mild to moderate pain, you can take over the counter acetaminophen every 6- 8hours need. Do not take more than 4000mg daily. For constipation, you can take Miralax once a day. FOLLOW-UP Please follow-up with your urologist, Dr. Wooten, for follow-up of your 5mm ureteral stone and post-operative follow-up after cystoscopy and stent procedure. You will discuss when you can have the stent removed. Please follow-up with your primary care physician at [facility] [place] [facility], to discuss your recent hospitalization and general health maintenance. Additional Instructions - please stay hydrated throughout the day. Try to drink 5-8 glasses of water daily Please seek immediate medical evaluation if you experience fever, chills, severe abdominal pain, painful urination. If you have any new, worsening, or concerning symptoms please return to the ED or call 911 Referrals: Cisco Wooten MD [Staff Physician] - (5 mm L ureteral calculus. s/p cystoscopy and stent. ) Disposition: HOME - Home Medications Comprehensive Discharge Medication List: Ambulatory Orders Aspirin 81 mg PO DAILY 03/04/18 Levofloxacin [Levaquin] 500 mg PO DAILY 7 Days #7 tablet 06/08/20 ATTENDING PHYSICIAN STATEMENT I saw and evaluated the patient. I reviewed the resident's note and discussed the case with the resident. I agree with the resident's findings and plan as documented. SUBJECTIVE: OBJECTIVE: ASSESSMENT AND PLAN:
--- NOTE | 2020-06-08 16:50 | PN ---
Teaching Attending Note Name of Resident: Yasmani Shen ATTENDING PHYSICIAN STATEMENT I saw and evaluated the patient. I reviewed the resident's note and discussed the case with the resident. I agree with the resident's findings and plan as documented. SUBJECTIVE: Feeling much better - no abdominal pain. No nausea/vomiting. No dysuria/hematuria. OBJECTIVE: Afebrile, hemodynamically Stable Last Vital Signs Temp Pulse Resp BP Pulse Ox 98.7 F 82 20 144/64 96 06/08/20 15:30 06/08/20 15:30 06/08/20 15:30 06/08/20 15:30 06/08/20 09:57 HEENT - Atraumatic, Normocephalic. Heart - S1, S2, RRR Lungs - clear to auscultation Abdomen - High BMI. Soft, non-tender. Bowel Sounds normal Extremities- No calf tenderness. Neuro - AAO x 3. Tone Power normal all extremities. Laboratory Results - last 24 hr 06/07/20 06/08/20 06/08/20 10:30 06:15 06:15 WBC 8.4 RBC 4.30 Hgb 12.7 Hct 38.4 MCV 89.3 MCH 29.4 MCHC 33.0 RDW 14.0 Plt Count 154 MPV 8.8 PT with INR 11.50 INR 0.97 Sodium Potassium Chloride Carbon Dioxide Anion Gap BUN Creatinine Est GFR (CKD-EPI)AfAm Est GFR (CKD-EPI)NonAf Random Glucose Calcium Phosphorus Magnesium Total Bilirubin AST ALT Alkaline Phosphatase Total Protein Albumin COVID-19 (VIANNEY) Not detected 06/08/20 06:15 WBC RBC Hgb Hct MCV MCH MCHC RDW Plt Count MPV PT with INR INR Sodium 139 Potassium 4.1 Chloride 108 H Carbon Dioxide 28 Anion Gap 4 L BUN 12.9 Creatinine 0.9 Est GFR (CKD-EPI)AfAm 69.01 Est GFR (CKD-EPI)NonAf 59.55 Random Glucose 128 H Calcium 8.2 L Phosphorus 3.2 Magnesium 2.4 Total Bilirubin 0.6 AST 23 ALT 33 Alkaline Phosphatase 98 Total Protein 6.7 Albumin 3.2 L COVID-19 (VIANNEY) Current Medications Generic Name Dose Route Start Last Admin Trade Name Freq PRN Reason Stop Dose Admin Acetaminophen 1,000 mg 06/07/20 16:25 Ofirmev Injection - IVPB 06/09/20 11:02 Q6H PRN PAIN LEVEL 7 - 10 Hydromorphone HCl 0.5 mg 06/07/20 16:25 Dilaudid Vial - IVPUSH Q6H PRN PAIN LEVEL 7 - 10 Ceftriaxone Sodium 1 gm/ 50 mls @ 100 mls/hr 06/08/20 10:00 06/08/20 09:08 Dextrose IVPB 100 mls/hr DAILY [facility] Administration Protocol Lactated Ringer's 1,000 mls @ 125 mls/hr 06/07/20 16:25 06/08/20 16:27 Lactated Ringers Solution IV Not Given ASDIR ROHIT Sodium Chloride 1,000 mls @ 100 mls/hr 06/07/20 16:25 06/08/20 16:27 Normal Saline - IV Not Given ASDIR ROHIT Discharge Medications Medication Instructions Recorded Aspirin 81 mg PO DAILY 03/04/18 Levofloxacin [Levaquin] 500 mg PO DAILY 7 Days #7 tablet 06/08/20 ASSESSMENT AND PLAN: 84 year old female with no significant PMH, presents with L flank pain, radiating to LLQ with associated dysuria. CT A/P - 5mm L ureteral calculus with moderate hydronephrosis 1. SURYA secondary to Obstructive Uropathy - resolved POD 1 s/p Cystoscopy/ureteral stent by Urology Creat normalized s/p procedure 2. Urinary Obstruction secondary to Ureteral calculus with hydronephrosis POD 1 s/p Cystoscopy/ureteral stent by Urology Urology follow up as out-patient. Urine Cx - normal germaine Discussed with Urology - 7 days Levofloxacin recommended by Urology on discharge. Medically stable for discharge with Urology follow up.
== END 2020-06-08 18:08 | disposition home or self-care (01) | DRG 661 ==
LOC: JER 04:10 → JERBED 09:35 → J7W 16:26
PROVIDERS: ADMIT Internal Medicine
PROC: 0T778DZ Dilation of Left Ureter with Intraluminal Device, Via Natural or Artificial Opening Endoscopic (ICD-10-PCS; principal; 2020-06-07 12:00)
PROC: BT1FYZZ Fluoroscopy of Left Kidney, Ureter and Bladder using Other Contrast (ICD-10-PCS; 2020-06-07 12:00)
DX: N13.6 Pyonephrosis (principal); N17.9 Acute kidney failure, unspecified; N39.0 Urinary tract infection, site not specified; R10.32 Left lower quadrant pain
CPT/HCPCS: 36415; 74176-TC; 76000-TC-FY; 80053; 81003; 82550; 82553; 83605; 83690; 83735; 84100; 84484; 85025; 85027; 85610; 87086; 93005; 93010; 94760; 99285-25; J0131; J7030; U0003

== ENCOUNTER 2020-07-19 05:17 | Day surgery (SDC) | payer BC ==
[2020-07-18 15:03] VITALS: BMI 34.1
[2020-07-19] MEDS ORDERED: GENTAMICIN SO4 80 MG/2 ML VIAL ONE (10:28)
[2020-07-19] MEDS ORDERED: AMPICILLIN NA/SULBACTAM NA 3 GM in SODIUM CHLORIDE 100 ML IVPB ONE (10:45)
[2020-07-19] MEDS ORDERED: AMPICILLIN SODIUM 2 GM VIAL IVPB ONE (13:46)
[2020-07-19] MEDS ORDERED: IOHEXOL 180 MG/1 ML ML IJ ONE (13:50)
[2020-07-19] MEDS ORDERED: LIDOCAINE HCL/PF 2% SDV 5ML VIAL ONE ×2 (13:55→14:17)
[2020-07-19] MEDS ORDERED: PROPOFOL 20 ML ONE (13:55)
[2020-07-19] MEDS ORDERED: FUROSEMIDE 40 MG/4 ML INJECTABLE VIAL ONE (14:15)
[2020-07-19] MEDS ORDERED: DEXAMETHASONE SOD PHOSPHATE 4 MG/1 ML VIAL ONE (14:23)
[2020-07-19] MEDS ORDERED: oxyCODONE HCL 5 MG TABLET PO PRN (14:32)
--- NOTE | 2020-07-19 14:33 | OP ---
Operative Note - Note: Operative Date: 07/19/20 Pre-Operative Diagnosis: left PU and LK stone Operation: URS/laser litho/stent Post-Operative Diagnosis: Same as Pre-op Anesthesia: General Estimated Blood Loss (mls): 0 Drains & Tubes with Location: 7fr 24cm stent Operative Report Dictated: Yes
[2020-07-19] MEDS ORDERED: KETOROLAC TROMETHAMINE 30 MG/1 ML VIAL ONE (14:34)
[2020-07-19] MEDS ORDERED: ONDANSETRON 4 MG/2 ML VIAL IVPUSH PRN (14:43)
[2020-07-19] MEDS ORDERED: LACTATED RINGERS SOLUTION 1,000 ML IV SCH (14:45)
[2020-07-19] MEDS ORDERED: DEXTROSE 5%-0.45% SALINE 1,000 ML IV SCH (14:45)
--- NOTE | 2020-07-19 15:36 | OP ---
DATE OF OPERATION: 07/19/2020 PREOPERATIVE DIAGNOSIS: Left proximal ureteral stone. POSTOPERATIVE DIAGNOSIS: Left proximal ureteral stone and left kidney stone. PROCEDURE: Cystoscopy, ureteroscopy, laser lithotripsy and stent placement. SURGEON: Cisco Wooten MD INDICATION: Patient is an 85-year-old female who underwent left ureteral stent placement several weeks ago for an obstructing left proximal ureteral stone. She is taken to the OR today for treatment of the stone. The risks, benefits and alternatives were discussed. PROCEDURE IN DETAIL: After informed consent was obtained, patient was taken to the OR, placed supine on the table. After cardiac monitoring was administered, general anesthesia was established. She was given 3 g of Unasyn and 160 gentamicin. At this point the cystoscope was inserted through the urethra without difficulty. The stent was seen emanating from the left ureteral orifice and this was already calcified with stone after only being in for a couple of weeks. A guidewire was advanced alongside the stent into the left renal pelvis. The stent was removed in its entirety and over the guidewire a dual-lumen catheter was advanced to advance a second wire as a working wire. Over the working wire the flexible ureteroscope was advanced into the proximal ureter. A stone was seen approximately 5 mm in size in the proximal ureter. This was pulverized to fine dust and 1- to 2-mm fragments with the 365 holmium laser fiber at a setting of 0.8 joules and 8 Hz. Then the ureteroscope was advanced into the kidney and in the lower pole of the kidney another stone was seen approximately another 6 cm in size and this was pulverized to fine dust and 1- to 2-mm fragments. Inspection of the rest of the collecting system revealed no other stones. The ureteroscope was removed. The entire ureter was inspected on the way out and no other stones were noted, and then a 7-Indian 24-cm double pigtail stent was then advanced in a monorail fashion. Fluoroscopy confirmed the stent to be in good position. Patient was awoken from anesthesia and transferred to recovery in stable condition. There were no complications. Estimated blood loss was minimal. Ruyb [id number]
[2020-07-19 17:31] VITALS: PULSE 70; TEMP 97.5
[2020-07-19 17:36] VITALS: BP 140/70
--- NOTE | 2020-07-25 17:55 | PATH ---
Surgical Pathology Report Patient Name: LAVERN VENTURA Med. Rec. #: [id number] /Age/Gender: 1935 (Age: 85) / F Account: [id number] Location: [facility] Taken: 07/19/2020 Received: 07/20/2020 Reported: 07/25/2020 Physicians: Cisco Wooten M.D. Specimen(s) Received REMOVED LEFT STENT Clinical History Calculus of ureter Final Diagnosis REMOVED STENT, LEFT, STENT EXCHANGE: CONSISTENT WITH URETERAL STENT. MACROSCOPIC DIAGNOSIS. Electronically Signed Aneta Hoffman M.D. Gross Description Received fresh labeled "removed left stent," is a 36 cm in length blue-green, coiled portion of tubing, consistent with a ureteral stent. No soft tissue is present. No sections are submitted, gross only. 07/20/2020 saudi07/20/2020
== END 2020-07-19 17:15 | disposition home or self-care (01) ==
LOC: JASU-SURG 05:17
PROVIDERS: ATTEND Urology
PROC: 0TF78ZZ Fragmentation in Left Ureter, Via Natural or Artificial Opening Endoscopic (ICD-10-PCS; principal; 2020-07-19 10:30)
PROC: 0T778DZ Dilation of Left Ureter with Intraluminal Device, Via Natural or Artificial Opening Endoscopic (ICD-10-PCS; 2020-07-19 10:30)
DX: N20.1 Calculus of ureter (principal)
CPT/HCPCS: 76000-TC-FY; 88300-TC; 94760

== ENCOUNTER 2024-02-29 10:59 | Emergency (ER) | payer BC ==
[2024-02-29 11:21] VITALS: RESP 16; TEMP 97.9; BMI 37.4
[2024-02-29] MEDS ORDERED: ACETAMINOPHEN INJECTION 100 ML IVPB ONE (11:49)
[2024-02-29 11:50] LABS: URINE APPEARANCE CLEAR; URINE BILIRUBIN NEGATIVE (NEGATIVE); URINE COLOR YELLOW; URINE GLUCOSE (UA) NEGATIVE (NEGATIVE); URINE KETONE NEGATIVE (NEGATIVE); URINE LEUK ESTERASE NEGATIVE (NEGATIVE); URINE NITRITE NEGATIVE (NEGATIVE); URINE PROTEIN NEGATIVE (NEGATIVE); URINE UROBILINOGEN 0.2 mg/dL (0.2-1.0)
[2024-02-29] MEDS: ACETAMINOPHEN 1000 MG/100 ML BAG IVPB ONE (11:50)
[2024-02-29 11:56] LABS: BASO % 0.8 % (0-2.0); EOS % 2.3 % (0-4.5); HEMATOCRIT 39.3 % (32.4-45.2); HEMOGLOBIN 12.9 GM/dL (10.7-15.3); LYMPH % 13.7 % (8-40); MCH 28.5 pg (25.7-33.7); MCHC 32.9 g/dl (32.0-36.0); MEAN CELL VOLUME 86.8 fl (80-96); MEAN PLT VOLUME 8.3 fl (7.5-11.1); MONO % 8.2 % (3.8-10.2); PLATELET COUNT 185 10^3/uL (134-434); RBC 4.54 M/mm3 (3.60-5.2); RDW 14.7 % (11.6-15.6); WHITE BLOOD COUNT 6.4 K/mm3 (4.0-10.0)
[2024-02-29] MEDS: SODIUM CHLORIDE 0.9% 500 ML INFUS.BAG IV ONE (11:59)
[2024-02-29 12:05] LABS: PROTHROMBIN TIME (PATIENT) 11.6 SEC (9.7-13.0)
[2024-02-29 12:08] LABS: ACTIVATED PTT 31.1 SECONDS (25.2-36.5)
[2024-02-29 12:15] LABS: POTASSIUM 4.3 mmol/L (3.5-5.1)
[2024-02-29 12:19] LABS: ALBUMIN 3.3 g/dl (3.4-5.0); CALCIUM 9.2 mg/dL (8.5-10.1); MAGNESIUM 2.1 mg/dL (1.8-2.4)
[2024-02-29 12:22] LABS: CREATININE 0.9 mg/dL (0.55-1.3)
[2024-02-29 12:23] LABS: TOT PROT 6.8 g/dl (6.4-8.2)
[2024-02-29 12:25] LABS: BILIRUBIN,TOTAL 0.5 mg/dL (0.2-1)
[2024-02-29] MEDS ORDERED: IBUPROFEN 400 MG TABLET (FP) PO ONE (14:32)
[2024-02-29] MEDS ORDERED: IBUPROFEN 600 MG TABLET (FP) PO ONE (14:35)
[2024-02-29] MEDS: IBUPROFEN 400 MG TABLET (FP) PO ONE (14:37)
[2024-02-29] MEDS: IBUPROFEN 600 MG TABLET (FP) PO ONE (14:38)
[2024-02-29] MEDS ORDERED: LIDOCAINE 4% PATCH TP ONE (15:01)
[2024-02-29] MEDS: LIDOCAINE 4% PATCH TP ONE (15:08)
[2024-02-29] MEDS: morphine CARPU-JECT 2 MG/1 ML DISP.SYRIN IVPUSH ONE (16:03)
[2024-02-29 16:51] VITALS: BP 149/75; PULSE 66
[2024-02-29] MEDS ORDERED: LIDOCAINE PATCH REMOVAL MC SCH (22:00)
== END 2024-02-29 17:49 | disposition home or self-care (01) ==
LOC: JER 10:59
PROC: 3E030NZ Introduction of Analgesics, Hypnotics, Sedatives into Peripheral Vein, Open Approach (ICD-10-PCS; principal; 2024-02-29)
PROC: 3E030GC Introduction of Other Therapeutic Substance into Peripheral Vein, Open Approach (ICD-10-PCS; 2024-02-29)
DX: N20.0 Calculus of kidney (principal); R10.9 Unspecified abdominal pain; R11.0 Nausea; R63.0 Anorexia; R35.0 Frequency of micturition
CPT/HCPCS: 36415; 74176-TC; 80053; 81003; 83735; 85025; 85610; 85730; 86850; 86900; 86901; 87086; 99284-25; J0131